=== PATIENT | female | born 1975 | race Caucasian/White ===

== ENCOUNTER 2020-11-01 17:59 | Emergency (ER) | payer SELFPAY ==
[2020-11-01 18:30] VITALS: BP 124/84; PULSE 80; RESP 18; TEMP 36.7; O2SAT 94; BMI 31.2
[2020-11-01 18:35] VITALS: RESP 18; TEMP 36.7; O2SAT 94
--- NOTE | 2020-11-01 19:05 | W.ED.DENTAL ---
HPI - Dental/Oral General: Chief complaint: Dental/Oral Stated complaint: Tooth Ache Time Seen by Provider: 11/01/20 19:00 Source: patient Mode of arrival: ambulatory Limitations: no limitations History of Present Illness: HPI Narrative: Patient is a 45-year-old female who presents to ED today with complaint of left lower dental pain. Patient states she has had a broken tooth for several months but states it recently began bothering her and she has now noticing some swelling patient states she last saw dentist approximately 2 years ago. She is not having any difficulty breathing or trouble swallowing. MD Complaint: tooth pain Teeth map: 1. Onset (ago): day(s) Duration: constant Severity: severe Relieving factors: nothing Exacerbating factors: nothing Context: history of dental caries Associated symptoms: Reports no associated symptoms; Denies ear or mastoid pain, fever(s) or odynophagia Treatment prior to arrival: oral analgesic Review of Systems Const: Denies: fever(s), chills, body aches, fatigue or malaise Eyes: Denies: change in vision, blurry vision or photophobia ENMT: Reports: dental pain; Denies: throat pain, uvular edema, enlarged tonsils, odynophagia, hoarseness, oral sores, bleeding gums, ear or mastoid pain, nasal discharge or nasal congestion Card: Denies: chest pain Resp: Denies: dyspnea GI: Denies: abdominal pain, nausea, vomiting or diarrhea Musc: Denies: neck pain Skin/Breast: Denies: rash Neuro: Denies: headache(s) PFS ED PFSH: Social History (Updated 10/23/20 @ 08:20 by Muna Stroud MA) Smoking and tobacco status: current every day smoker cigarettes Packs smoked per day: 1 Quit status (tobacco): considering quitting Second hand smoke exposure: Yes Smoking risk assessment/counseling performed?: Yes Tobacco counseling given: other Alcohol intake: never Desire information about alcohol rehabilitation?: No Counseling given: No Desire information about substance/drug rehabilitation?: No Counseling given: No Physical Exam Const: COMMON NORMALS: no acute distress, average body habitus, patient oriented x3, no limitations and alert GENERAL APPEARANCE: cooperative ORIENTATION/CONSCIOUSNESS: Yes awake, Yes oriented to person, Yes oriented to place and Yes oriented to time HENMT: COMMON NORMALS: normocephalic and atraumatic HEAD & SCALP: normocephalic and atraumatic FACE & SINUS: normal facial exam TEETH & GINGIVA IMAGES: 1. filling noted; no obvious fracture identified; localized swelling; no abscess THROAT: no uvular edema OTHER: floor of mouth is soft and non-elevated Neck/C-Spine: COMMON NORMALS: full ROM and no lymphadenopathy GENERAL: No anterior neck swelling and No submandibular swelling Lymph: LYMPHATIC: no lymphadenopathy noted Resp: COMMON NORMALS: normal respiratory effort and clear to auscultation bilaterally AUSCULTATION: clear to auscultation bilaterally Cardio: COMMON NORMALS: regular rate and regular rhythm RATE: regular rate RHYTHM: regular rhythm Neuro: JESS COMA SCALE: document GCS findings [place] coma scale eye opening: Spontaneous [place] coma scale verbal response: Orientated [place] coma scale motor response: Obey commands Jess coma scale total score: 15 COMMON NORMALS: patient oriented x3 and CN's II-XII intact bilaterally SENSORIUM/ORIENTATION: Yes alert, Yes oriented to person, Yes oriented to place and Yes oriented to time Skin: COMMON NORMALS: no rashes or lesions noted GENERAL SKIN EXAM: no rashes or lesions noted Course Vital Signs: Vital signs: Vital Signs Temperature 98.0 F 11/01/20 18:30 Pulse Rate 80 11/01/20 18:30 Respiratory Rate 18 11/01/20 18:30 Blood Pressure 124/84 11/01/20 18:30 Pulse Oximetry 94 11/01/20 18:30 MDM - Dental/Oral MDM Narrative: Medical decision making narrative: Given dental resources and stressed importance of dental follow up. Discharge Plan Discharge Patient Disposition: Home Clinical Impression: Toothache, Dental caries Condition: Stable Prescriptions: New ibuprofen 800 mg tablet 800 mg PO Q8H PRN (Reason: pain) Qty: 20 RF: 0 penicillin V potassium 500 mg tablet 500 mg PO Q8H 7 Days Qty: 21 RF: 0 No Action fluoxetine [Prozac] 40 mg capsule 40 mg PO QAM RF: 0 aripiprazole [Abilify] 10 mg tablet 10 mg PO QAM RF: 0 hydroxyzine HCl 25 mg tablet 25 mg PO TID PRNRF: 0 trazodone 100 mg tablet 100 mg PO .QHS PRNRF: 0 diphenhydramine HCl [Benadryl] 25 mg capsule 25 mg PO .QHS PRNRF: 0 Discharge Orders: Discharge ED (Routine); Ordered 11/01/20 Ordered By: Megan Rawls Patient Instructions: Dental Caries (ED), Toothache (ED) Coding Level of Care Code ED Catering Driver for Arielle Katz
[2020-11-01 19:23] VITALS: BP 128/88; PULSE 88; RESP 16; O2SAT 95
== END 2020-11-01 19:25 | disposition home or self-care (01) ==
PROVIDERS: Emergency Provider Physician Assistant
DX: K02.9 Dental caries, unspecified (principal); F17.210 Nicotine dependence, cigarettes, uncomplicated
CPT/HCPCS: 99281

== ENCOUNTER 2023-12-09 15:22 | Inpatient (IN) | payer OTHER, SELFPAY ==
[2023-12-09 15:27] VITALS: BP 127/88; PULSE 86; RESP 17; TEMP 36.7; O2SAT 96; BMI 25.0
--- NOTE | 2023-12-09 16:03 | ED.C_ITS ---
HPI - Psych 2 General: Chief Complaint: Psychiatric Symptoms Stated Complaint: unbalance Time Seen by Provider: 12/09/23 15:34 History of Present Illness: 48-year-old female presents emergency ro om with complaint of what she describes as a chemical imbalance. 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 She picked up a firearm and was contemplating killing herself. He was able to convince her to put the firearm down and then eventually able to convince her to come into the hospital to be seen. 20 years ago she had a hospital admission for suicide ideation/attempt she was hospitalized for a week she is not currently seen at [facility] or by any other psychiatry. She told me that she does not take any medications however initially there is multiple medications on her list. Associated symptoms: Reports depression and suicidal ideation Related Data Home Medications Medication Instructions Recorded Confirmed aripiprazole 10 mg tablet (Abilify) 10 mg PO QAM 04/04/19 03/05/21 diphenhydramine HCl 25 mg capsule 25 mg PO .QHS PRN 04/04/19 03/05/21 (Benadryl) fluoxetine 40 mg capsule (Prozac) 40 mg PO QAM 04/04/19 03/05/21 hydroxyzine HCl 25 mg tablet 25 mg PO TID PRN 04/04/19 03/05/21 trazodone 100 mg tablet 100 mg PO .QHS PRN 04/04/19 03/05/21 Previous Rx's Medication Instructions Recorded ibuprofen 800 mg tablet 800 mg PO Q8H PRN pain #20 tabs 11/01/20 Allergies Allergy/AdvReac Type Severity Reaction Status Date / Time No Known Allergies Allergy Verified 03/05/21 10:33 Review of Systems 2 Const: Denies: fever(s) or chills Card: Denies: chest pain Resp: Denies: dyspnea GI: Denies: abdominal pain : Denies: dysuria, urinary frequency or urinary urgency Musc: Denies: neck pain or back pain Skin/Breast: Denies: rash Psych: Reports: depression and suicidal ideation PFSH ED 2 PFSH: Social History Quit status (tobacco/nicotine): considering quitting Second hand smoke exposure: Yes Alcohol intake: never Substance/Drug Use: never Physical Exam 2 Const: GENERAL APPEARANCE: cooperative ORIENTATION/CONSCIOUSNESS: Yes awake, Yes oriented to person, Yes oriented to place and Yes oriented to time HENMT: COMMON NORMALS: normocephalic, atraumatic and hearing grossly normal bilaterally HEAD & SCALP: normocephalic and atraumatic Resp: COMMON NORMALS: normal respiratory effort, No retractions, No use of accessory muscles and clear to auscultation bilaterally AUSCULTATION: clear to auscultation bilaterally Cardio: COMMON NORMALS: regular rate, regular rhythm and No murmurs present (Cardio) RATE: regular rate RHYTHM: regular rhythm Extremity: COMMON NORMALS: normal to inspection, capillary refill normal, no clubbing, cyanosis or edema, no calf tenderness and no pedal edema Neuro: SENSORIUM/ORIENTATION: Yes oriented to person, Yes oriented to place and Yes oriented to time Skin: COMMON NORMALS: no rashes or lesions noted GENERAL SKIN EXAM: no rashes or lesions noted Course 2 Vital Signs: Vital signs: Vital Signs Temperature 98.0 F 12/09/23 15:27 Pulse Rate 86 12/09/23 15:27 Respiratory Rate 17 12/09/23 15:27 Blood Pressure 127/88 12/09/23 15:27 Pulse Oximetry 96 12/09/23 15:27 Oxygen Delivery Me thod Room Air 12/09/23 15:27 MDM - Psych Medical Decision Making Patient suicidal with attempt using a firearm her was able to talk her out of it on the phone and convince her to come to the emergency room. She is amenable to admission. Discussed Dr. alvaraod will place in s 6-hour hold for suicidal ideation orders written for admission. Interestingly patient told me she is not on any medications or several medications list that she will states she is not currently going to [facility] see about 5 years ago she had an appointment scheduled does not look like she ever followed through with that. Patient also noted to have hyperglycemia. Ketones negative glycosylated hemoglobin ordered discussed Dr. alvarado consultation from the hospitalist service requested Dr. Giordano will see her in MPU. Medical Records I reviewed the patient's medical records. Lab Data I reviewed the patient's lab results. 12/09/23 16:20 12/09/23 16:20 Laboratory Results WBC 11.74 10^3/uL (3.29-11.43) H 12/09/23 16:20 RBC 5.00 10^6/uL (3.85-5.65) 12/09/23 16:20 Hgb 15.50 g/dL (11.27-16.99) 12/09/23 16:20 Hct 43.9 % (36-47) 12/09/23 16:20 MCV 87.8 fl (85-98) 12/09/23 16:20 MCH 31.0 pg (27-33) 12/09/23 16:20 MCHC 35.3 g/dL (30-55) 12/09/23 16:20 RDW 11.9 % (12.1-15.1) L 12/09/23 16:20 Plt Count 253 10^3/cmm (157-399) 12/09/23 16:20 MPV 12.1 fL (7.4-10.4) H 12/09/23 16:20 Neut % (Auto) 67.4 % 12/09/23 16:20 Lymph % (Auto) 25.2 % 12/09/23 16:20 [place] % (Auto) 5.0 % 12/09/23 16:20 Eos % (Auto) 1.6 % 12/09/23 16:20 Baso % (Auto) 0.4 % 12/09/23 16:20 Neut # (Auto) 7.90 10^3/uL (1.8-7.7) H 12/09/23 16:20 Lymph # (Auto) 3.0 10^3/uL (0.8-4.8) 12/09/23 16:20 [place] # (Auto) 0.6 10^3/uL (0.2-0.9) 12/09/23 16:20 Eos # (Auto) 0.2 10^3/uL (0.0-0.8) 12/09/23 16:20 Baso # (Auto) 0.1 10^3/uL (0.0-0.1) 12/09/23 16:20 Nucleated RBC % (auto) 0 % 12/09/23 16:20 Nucleated RBCs # 0.0 /100WBC 12/09/23 16:20 Sodium 138 mmol/L (136-145) 12/09/23 16:20 Potassium 3.7 mmol/L (3.5-5.1) 12/09/23 16:20 Chloride 102 mmol/L (98-107) 12/09/23 16:20 Carbon Dioxide 25 mmol/L (22-29) 12/09/23 16:20 Anion Gap 14.7 (5-19) 12/09/23 16:20 BUN 13 mg/dL (6-20) 12/09/23 16:20 Creatinine 0.5 mg/dL (0.5-0.9) 12/09/23 16:20 GFR Calculation 132.8 mL/min (90-130) H 12/09/23 16:20 Glucose 409 mg/dL (65-115) H 12/09/23 16:20 Calculated Osmolality 303 mOsm/kg (285-295) H 12/09/23 16:20 Calcium 9.2 mg/dL (8.5-10.5) 12/09/23 16:20 Total Bilirubin 0.3 mg/dL (0.15-1.2) 12/09/23 16:20 AST 12 U/L (0-32) 12/09/23 16:20 ALT 13 U/L (0-33) 12/09/23 16:20 Alkaline Phosphatase 114 U/L (35-105) H 12/09/23 16:20 Total Protein 6.8 g/dL (6.6-8.7) 12/09/23 16:20 Albumin 4.3 g/dL (3.5-5.2) 12/09/23 16:20 Globulin 2.5 g/dL (1.3-4.6) 12/09/23 16:20 Salicylates < 0.3 mg/dL (3-10) L 12/09/23 16:20 Acetaminophen < 5.0 ug/mL (10-30) L 12/09/23 16:20 Ethyl Alcohol < 10 mg/dL (0-10) 12/09/23 16:20 Serum Ketones Negative (Negative) 12/09/23 16:20 No radiology studies performed this visit Discharge Plan Discharge Patient Disposition: Admitted As Inpatient Clinical Impression: Suicidal ideation, Depression, Hyperglycemia Condition: Stable Coding Level of Care Code ED Furnace Attendant for Arielle Katz
[2023-12-09 16:31] LABS: Basophils # 0.1 10^3/uL (0.0-0.1); Basophils % 0.4 %; Eosinophils # 0.2 10^3/uL (0.0-0.8); Eosinophils % 1.6 %; Hematocrit 43.9 % (36-47); Lymphocytes % 25.2 %; Mean Corpuscular HGB Conc 35.3 g/dL (30-55); Mean Corpuscular Volume 87.8 fl (85-98); Mean Platelet Volume 12.1 fL (7.4-10.4); Monocytes # 0.6 10^3/uL (0.2-0.9); Neutrophils % 67.4 %; Nucleated Red Blood Cells % 0 %; Platelet Count 253 10^3/cmm (157-399); Red Cell Distribution Width 11.9 % (12.1-15.1); White Blood Count 11.74 10^3/uL (3.29-11.43)
[2023-12-09 16:47] LABS: Alanine Aminotransferase 13 U/L (0-33); Albumin Level 4.3 g/dL (3.5-5.2); Alkaline Phosphatase 114 U/L (35-105); Anion Gap 14.7 (5-19); Aspartate Amino Transferase 12 U/L (0-32); Blood Urea Nitrogen 13 mg/dL (6-20); Calcium 9.2 mg/dL (8.5-10.5); Carbon Dioxide 25 mmol/L (22-29); Chloride 102 mmol/L (98-107); Creatinine Clr Calc Pharmacy 136.3085; Globulin 2.5 g/dL (1.3-4.6); Glomerular Filtration Rate 132.8 mL/min (90-130); Glucose 409 mg/dL (65-115); Osmolality Calculated 303 mOsm/kg (285-295); Potassium 3.7 mmol/L (3.5-5.1); Sodium 138 mmol/L (136-145); Total Bilirubin 0.3 mg/dL (0.15-1.2); Total Protein 6.8 g/dL (6.6-8.7)
[2023-12-09 16:50] LABS: Acetaminophen < 5.0 ug/mL (10-30); Alcohol Level < 10 mg/dL (0-10); Salicylate < 0.3 mg/dL (3-10)
[2023-12-09 17:21] LABS: Ketone (Acetest) Serum Negative (Negative)
[2023-12-09 17:49] LABS: Amphetamines Screen Urine Negative (Negative); Barbiturates Screen Urine Negative (Negative); Benzodiazepines Screen Urine Negative (Negative); Cocaine Screen Urine Negative (Negative); Opiate Screen Urine Negative (Negative); PCP Screen Urine Negative (Negative); THC Screen Urine Negative (Negative)
--- NOTE | 2023-12-09 17:55 | P.CONIM_ITS ---
Providers/Reason For Consult 2 Consulting Physician/Specialty*: Psychiatry Reason for Consult*: Hyperglycemia History of Present Illness History of Present Illness Jacob Sharp is a 48 year old female who presents [facility] for suicidal ideation, hospitalist team was consulted due to patient's elevated blood sugars. Patient does report a family history of type 2 diabetes mellitus, her mother and her daughter have type 2 diabetes mellitus. She denies any polyuria, no polydipsia, no polyphagia. Review of Systems 2 Card: Denies: chest pain Resp: Denies: dyspnea GI: Denies: abdominal pain Medications/Allergies Home Medications Medication Instructions Recorded Confirmed Last Taken Type aripiprazole 10 mg tablet (Abilify) 10 mg PO QAM 04/04/19 03/05/21 Unknown History diphenhydramine HCl 25 mg capsule 25 mg PO .QHS PRN 04/04/19 03/05/21 Unknown History (Benadryl) fluoxetine 40 mg capsule (Prozac) 40 mg PO QAM 04/04/19 03/05/21 Unknown History hydroxyzine HCl 25 mg tablet 25 mg PO TID PRN 04/04/19 03/05/21 Unknown History trazodone 100 mg tablet 100 mg PO .QHS PRN 04/04/19 03/05/21 Unknown History ibuprofen 800 mg tablet 800 mg PO Q8H PRN pain #20 tabs 11/01/20 03/05/21 Unknown Rx Allergies Allergy/AdvReac Type Severity Reaction Status Date / Time No Known Allergies Allergy Verified 03/05/21 10:33 PFSH Acute 2 PFSH: Social History Quit status (tobacco/nicotine): considering quitting Second hand smoke exposure: Yes Alcohol intake: never Substance/Drug Use: never Vitals/I&O/Wt Last Vital Signs Temp 98.0 F 12/09/23 15:27 Pulse 86 12/09/23 15:27 Resp 17 12/09/23 15:27 BP 127/88 12/09/23 15:27 Pulse Ox 96 12/09/23 15:27 O2 Del Method Room Air 12/09/23 15:27 Weight last 48 hrs Weight 68.039 kg Physical Exam 2 Const: COMMON NORMALS: no acute distress and patient oriented x3 Resp: COMMON NORMALS: normal respiratory effort, No retractions, No use of accessory muscles and clear to auscultation bilaterally AUSCULTATION: clear to auscultation bilaterally Cardio: COMMON NORMALS: regular rate, regular rhythm, S1 normal heart sound present and S2 normal heart sound present RATE: regular rate RHYTHM: r egular rhythm HEART SOUNDS: S1 normal heart sound present and S2 normal heart sound present GI: COMMON NORMALS: Normal to inspection, nondistended, normoactive bowel sounds present and non-tender Extremity: COMMON NORMALS: no pedal edema Neuro: COMMON NORMALS: patient oriented x3 Psych: COMMON NORMALS: mental status grossly normal Data 12/09/23 16:20 12/09/23 16:20 A&P Assessment and plan (1) Hyperglycemia: Plan Hyperglycemia -Concerning for type 2 diabetes mellitus -A1c ordered -Lipid panel, TSH -Will start low-dose sliding scale -No evidence of DKA, ketones negative, anion gap 14.7 Consult Attestations 2 Medical Necessity Statement: Patient requires hospitalization for suicidal ideation Diagnoses Hyperglycemia R73.9
--- NOTE | 2023-12-09 18:00 | ECG_ITS ---
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 Measurements Intervals [place] Rate: 74 P: 37 [place]: 176 QRS: 0 QRSD: 68 T: 19 QT: 383 QTc: 427 Interpretive Statements SINUS RHYTHM LOW QRS VOLTAGE IN PRECORDIAL LEADS [QRS DEFLECTION < 1.0 mV IN CHEST LEADS] ANTEROSEPTAL MYOCARDIAL INFARCTION , OF INDETERMINATE AGE [40+ ms Q WAVE IN V1-V4] No previous ECG available for comparison Electronically Signed On 12-09-2023 18:08:35 CDT by Sven Guevara M.D. [id number]
[2023-12-09 18:33] LABS: Cholesterol 188 mg/dL (0-200); HDL Cholesterol 40 mg/dL (60-100); LDL Cholesterol Calculated 119 mg/dL (50-129); LDL HDL Ratio 2.98 RATIO (0.00-3.22); Thyroid Stimulating Hormone 1.14 uIU/mL (0.27-4.20); Triglycerides 143 mg/dL (0-150)
[2023-12-09 18:53] LABS: Glucose Point of Care 468 mg/dL (70-110)
[2023-12-09] MEDS: insulin lispro 100 unit/1 mL SUBCUT (18:56)
[2023-12-09 18:57] VITALS: BP 124/77; PULSE 91; RESP 18; O2SAT 98
[2023-12-09 18:58] VITALS: BP 124/77; PULSE 91; RESP 18; O2SAT 98
[2023-12-09 20:00] VITALS: BP 117/80; PULSE 96; RESP 17; TEMP 37; O2SAT 98
[2023-12-09 20:21] VITALS: BP 117/80; PULSE 96; RESP 17; TEMP 37; O2SAT 98
[2023-12-09 20:23] LABS: Glucose Point of Care 365 mg/dL (70-110)
[2023-12-09 20:51] LABS: HCG Qualitative Urine. Negative (Negative)
[2023-12-09 20:55] LABS: Estmated Average Glucose 263; Hemoglobin A1C 10.8 % (4.0-6.0)
[2023-12-09 21:22] LABS: Glucose Point of Care 211 mg/dL (70-110)
[2023-12-09 21:40] VITALS: BP 129/69; PULSE 93; O2SAT 93
--- NOTE | 2023-12-09 22:05 | PC.NURSE ---
RN gave an additional 14 units of regular insulin at 20:00. Not able to document in may. charge nurse, pharmacy, Doctor and A And P Technician notified. RN gave report to Tanner in NPU on addition dose.
[2023-12-09 23:44] LABS: Glucose Point of Care 118 mg/dL (70-110)
[2023-12-10] VITALS (8 sets, daily range): BP systolic 94–119; BP diastolic 61–82; PULSE 58–93; RESP 16–18; TEMP 36.4–37.1; O2SAT 97–99
[2023-12-10 00:35] LABS: Glucose Point of Care 175 mg/dL (70-110)
[2023-12-10 03:05] LABS: Glucose Point of Care 212 mg/dL (70-110)
--- NOTE | 2023-12-10 03:28 | PC.NURSE ---
Patient had a blood glucose of 468 in the ED. The day shift nurse gave her 14 units of Humilog insulin. Then the manager shift not seeing that she had 14u by day shift gave her an additional 14 units = 28 units total. We did accuchecks @ 20:45=092, 21:29=765, 23:94=765(gave orange juice, peanut butter and a banana), 00:15=978, 03:49=046. supervisor stave cutting notified me of the double dose requesting we monitor her BS q1 hour X2 then q 2-3 hour after that (As above). Patient states that she is NOT diabetic although she has a strong family history of DM. She was seen in the ED by Dr. Rivas. See Orders.
[2023-12-10 05:14] LABS: Glucose Point of Care 241 mg/dL (70-110)
[2023-12-10 07:46] LABS: Glucose Point of Care 261 mg/dL (70-110)
[2023-12-10] MEDS: insulin lispro 100 unit/1 mL SUBCUT ×4 (08:21→22:04)
[2023-12-10 09:46] LABS: Blood Urea Nitrogen 15 mg/dL (6-20); Calcium 9.8 mg/dL (8.5-10.5); Carbon Dioxide 24 mmol/L (22-29); Chloride 102 mmol/L (98-107); Creatinine Clr Calc Pharmacy 113.5904; Glomerular Filtration Rate 107.6 mL/min (90-130); Glucose 340 mg/dL (65-115); Osmolality Calculated 300 mOsm/kg (285-295); Sodium 138 mmol/L (136-145)
[2023-12-10 11:26] LABS: Glucose Point of Care 365 mg/dL (70-110)
[2023-12-10] MEDS: flu vacc pf 24-25 (6 mos+) SYRINGE 45 MCG IM (11:38)
--- NOTE | 2023-12-10 11:43 | PC.NURSE ---
Dr. Giordano asked this RN to have staff educate the patient on how to use her new glucometer and how to inject insulin before she was discharged. This RN printed an educational packet out for the patient and demonstrated how to properly inject her insulin as well as any side effects to watch for. Patient acknowledged her understanding of the information given and had no questions.
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
[2023-12-10 17:12] LABS: Glucose Point of Care 221 mg/dL (70-110)
--- NOTE | 2023-12-10 18:47 | PC.NURSE ---
MEDS TO BEDS TWO BAGS OF MEDICATIONS PLACED IN [facility] AND NOTE LEFT ON CHART REMINDER TO STAFF TO REMOVE MEDICATIONS WHEN DISCHARGED.
[2023-12-10 20:13] LABS: Glucose Point of Care 296 mg/dL (70-110)
[2023-12-10] MEDS: trazodone 50 mg Tablet PO (22:09)
[2023-12-10] MEDS: hyDROXYzine 25 mg Capsule 50 MG PO (22:09)
[2023-12-11] VITALS (9 sets, daily range): BP systolic 78–116; BP diastolic 49–83; PULSE 54–94; RESP 16–18; TEMP 36.4–37.1; O2SAT 96–99
[2023-12-11 07:37] LABS: Glucose Point of Care 230 mg/dL (70-110)
[2023-12-11] MEDS: insulin lispro 100 unit/1 mL SUBCUT ×5 (08:39→20:24)
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
[2023-12-11] MEDS: fluoxetine 20 mg Capsule PO (09:47)
[2023-12-11] MEDS: ARIPiprazole 10 mg Tablet 5 MG PO (09:47)
[2023-12-11 11:08] LABS: Glucose Point of Care 427 mg/dL (70-110)
[2023-12-11 14:57] LABS: Glucose Point of Care 372 mg/dL (70-110)
[2023-12-11] MEDS: insulin glargine 100 units/1 mL 10 UNIT SUBCUT (15:48)
[2023-12-11 17:18] LABS: Glucose Point of Care 264 mg/dL (70-110)
--- NOTE | 2023-12-11 17:22 | PC.NURSE ---
Patient Note When administering insulin this afternoon, patient asked why she had to have so many shots. Explained that her blood sugar was very high and we give insulin to bring it back down. Explained potential problems that can develop if BS is left high and untreated. Explained that patient would probably need to check her sugars at home and more closely monitor her food intake and carb count. Patient nodded but didn't ask more questions. Reinforcement will be needed.
[2023-12-11 18:52] LABS: Glucose Point of Care 351 mg/dL (70-110)
[2023-12-11] MEDS: trazodone 50 mg Tablet PO (20:26)
[2023-12-11 21:12] LABS: Glucose Point of Care 346 mg/dL (70-110)
[2023-12-12] VITALS (8 sets, daily range): BP systolic 94–116; BP diastolic 60–79; PULSE 58–88; RESP 16–18; TEMP 36.4–37.1; O2SAT 96–99
[2023-12-12 07:35] LABS: Glucose Point of Care 218 mg/dL (70-110)
[2023-12-12] MEDS: insulin lispro 100 unit/1 mL SUBCUT ×4 (07:37→20:36)
[2023-12-12] MEDS: ARIPiprazole 10 mg Tablet 5 MG PO (09:01)
[2023-12-12] MEDS: fluoxetine 20 mg Capsule PO (09:01)
[2023-12-12] MEDS: insulin glargine 100 units/1 mL 10 UNIT SUBCUT (10:45)
[2023-12-12 11:10] LABS: Glucose Point of Care 294 mg/dL (70-110)
[2023-12-12 16:27] LABS: Glucose Point of Care 344 mg/dL (70-110)
[2023-12-12] MEDS: acetaminophen 325 mg Tablet 650 MG PO (16:36)
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
[2023-12-12 19:46] LABS: Glucose Point of Care 342 mg/dL (70-110)
[2023-12-12] MEDS: trazodone 50 mg Tablet PO (22:30)
[2023-12-13] MEDS: hyDROXYzine 25 mg Capsule 50 MG PO ×2 (02:50→20:16)
[2023-12-13 06:00] VITALS: BP 103/70; PULSE 77; RESP 18; TEMP 36.6; O2SAT 98
[2023-12-13 08:01] LABS: Glucose Point of Care 174 mg/dL (70-110)
[2023-12-13] MEDS: fluoxetine 20 mg Capsule PO (08:54)
[2023-12-13] MEDS: ARIPiprazole 10 mg Tablet 5 MG PO (08:54)
[2023-12-13] MEDS: insulin glargine 100 units/1 mL 10 UNIT SUBCUT (08:54)
[2023-12-13] MEDS: insulin lispro 100 unit/1 mL SUBCUT ×4 (08:55→19:47)
[2023-12-13 09:21] LABS: Rapid Plasma Reagin Syphilis Nonreactive (Nonreactive)
[2023-12-13 11:48] LABS: HIV 1 & 2 Antibody Non-Reactive (Non-Reactiv); HIV 1 & 2 Antigen Non-Reactive (Non-Reactiv)
[2023-12-13 12:00] VITALS: BP 103/70; PULSE 77; RESP 18; TEMP 36.6
[2023-12-13 12:05] LABS: Glucose Point of Care 277 mg/dL (70-110)
[2023-12-13 14:00] VITALS: BP 145/90; PULSE 82; RESP 18; TEMP 36.8; O2SAT 92
[2023-12-13 17:28] LABS: Glucose Point of Care 190 mg/dL (70-110)
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
[2023-12-13 19:15] LABS: Glucose Point of Care 187 mg/dL (70-110)
[2023-12-13 19:34] VITALS: BP 109/73; PULSE 76; RESP 18; TEMP 36.6; O2SAT 97
[2023-12-13] MEDS: trazodone 50 mg Tablet PO (20:16)
[2023-12-14] MEDS: ibuprofen 600 mg Tablet PO ×2 (03:05→20:28)
[2023-12-14 03:18] LABS: Glucose Point of Care 122 mg/dL (70-110)
[2023-12-14 06:00] VITALS: BP 109/64; PULSE 62; RESP 18; TEMP 36.6; O2SAT 98
[2023-12-14 07:58] LABS: Glucose Point of Care 219 mg/dL (70-110)
[2023-12-14] MEDS: ARIPiprazole 10 mg Tablet 5 MG PO (08:12)
[2023-12-14] MEDS: insulin lispro 100 unit/1 mL SUBCUT ×4 (08:13→20:31)
[2023-12-14] MEDS: fluoxetine 20 mg Capsule PO (08:13)
[2023-12-14] MEDS: insulin glargine 100 units/1 mL 10 UNIT SUBCUT (08:23)
[2023-12-14 11:23] LABS: Glucose Point of Care 242 mg/dL (70-110)
[2023-12-14 12:10] LABS: HSV 2 IGG Type Specific AB <0.90 index
[2023-12-14] MEDS: hyDROXYzine 25 mg Capsule 50 MG PO (13:35)
[2023-12-14 14:00] VITALS: BP 95/59; PULSE 63; RESP 16; TEMP 36.6; O2SAT 97
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
[2023-12-14 16:24] LABS: Chlamydia Trachomatis RNA TMA NOT DETECTED (NOT DETECTED); Neisseria Gonorrhoeae RNA, TMA NOT DETECTED (NOT DETECTED)
[2023-12-14 17:11] LABS: Glucose Point of Care 172 mg/dL (70-110)
[2023-12-14 19:20] VITALS: BP 114/82; PULSE 96; RESP 16; TEMP 36.6; O2SAT 97
[2023-12-14 20:20] LABS: Glucose Point of Care 235 mg/dL (70-110)
[2023-12-14] MEDS: quetiapine 25 mg Tablet 50 MG PO (20:28)
[2023-12-15 06:00] VITALS: BP 119/76; PULSE 69; RESP 18; TEMP 36.5; O2SAT 99
[2023-12-15 07:29] LABS: Glucose Point of Care 167 mg/dL (70-110)
[2023-12-15] MEDS: fluoxetine 20 mg Capsule PO (08:25)
[2023-12-15] MEDS: ARIPiprazole 10 mg Tablet 5 MG PO (08:25)
[2023-12-15] MEDS: insulin glargine 100 units/1 mL 10 UNIT SUBCUT (08:26)
[2023-12-15] MEDS: insulin lispro 100 unit/1 mL SUBCUT ×2 (08:26→11:42)
[2023-12-15] MEDS: hyDROXYzine 25 mg Capsule 50 MG PO (10:55)
[2023-12-15 10:59] LABS: Glucose Point of Care 239 mg/dL (70-110)
[2023-12-15 14:00] VITALS: BP 122/81; PULSE 76; RESP 16; TEMP 36.8; O2SAT 99
--- NOTE | 2023-12-15 14:27 | P.NPUDS_ITS ---
Diagnoses at Discharge Discharge Diagnosis (1) Suicidal ideation: Status: Acute (2) Major depressive disorder, recurrent: Status: Acute (3) Anxiety disorder: Status: Acute (4) PTSD (post-traumatic stress disorder): Status: Acute Reason for Visit Reason for Visit: unbalance Involuntary Hold Information 96 Hour Hold: 96 Hour Involuntary Admission: Yes 96 Hour Hold Ending Date: 12/15/23 96 Hour Hold Ending Time: 16:10 Mental Status Exam MSE Comments: This is an overweight white female with hospital scrubs on with limited grooming and eye contact.? Poor dentition noted. No abnormal movements except for psychomotor retardation.? Mostly cooperative with exam in mild to moderate distress.? Speech was decreased rate and volume. Mood described as better but anxious about my test results, affect mostly congruent. Thought process organized, thought content: Patient denied suicidal or homicidal ideation, there were no delusions reported or noted, she denied auditory or visual hallucinations. Attention and concentration were mostly intact and memory appeared mostly reliable, but none were formally tested.? She is alert and oriented x 3.? Insight and judgment limited, impulse control is limited versus impaired.? Discharge Data Studies Completed and Pending: Pending at discharge Category Date Time Status Glutamic Acid Dec arboxylase AB Rout ine Lab 12/10/23 09:21 Received Insulin Autoantib cathy Routine Lab 12/10/23 09:21 Received Laboratory Results WBC 11.74 10^3/uL (3. 29-11.43) H 12/09/23 16:20 RBC 5.00 10^6/uL (3.8 5-5.65) 12/09/23 16:20 Hgb 15.50 g/dL (11.27 -16.99) 12/09/23 16:20 Hct 43.9 % (36-47) 12/09/23 16:20 MCV 87.8 fl (85-98) 12/09/23 16:20 MCH 31.0 pg (27-33) 12/09/23 16:20 MCHC 35.3 g/dL (30-55) 12/09/23 16:20 RDW 11.9 % (12.1-15.1 ) L 12/09/23 16:20 Plt Count 253 10^3/cmm (157 -399) 12/09/23 16:20 MPV 12.1 fL (7.4-10.4 ) H 12/09/23 16:20 Neut % (Auto) 67.4 % 12/09/23 16:20 Lymph % (Auto) 25.2 % 12/09/23 16:20 [place] % (Auto) 5.0 % 12/09/23 16:20 Eos % (Auto) 1.6 % 12/09/23 16:20 Baso % (Auto) 0.4 % 12/09/23 16:20 Neut # (Auto) 7.90 10^3/uL (1.8 -7.7) H 12/09/23 16:20 Lymph # (Auto) 3.0 10^3/uL (0.8- 4.8) 12/09/23 16:20 [place] # (Auto) 0.6 10^3/uL (0.2- 0.9) 12/09/23 16:20 Eos # (Auto) 0.2 10^3/uL (0.0- 0.8) 12/09/23 16:20 Baso # (Auto) 0.1 10^3/uL (0.0- 0.1) 12/09/23 16:20 Nucleated RBC % (a uto) 0 % 12/09/23 16:20 Nucleated RBCs # 0.0 /100WBC 12/09/23 16:20 Sodium 138 mmol/L (136-1 45) 12/10/23 09:21 Potassium 4.0 mmol/L (3.5-5 .1) 12/10/23 09:21 Chloride 102 mmol/L (98-10 7) 12/10/23 09:21 Carbon Dioxide 24 mmol/L (22-29) 12/10/23 09:21 Anion Gap 16.0 (5-19) 12/10/23 09:21 BUN 15 mg/dL (6-20) 12/10/23 09:21 Creatinine 0.6 mg/dL (0.5-0. 9) 12/10/23 09:21 GFR Calculation 107.6 mL/min (90- 130) 12/10/23 09:21 Glucose 340 mg/dL (65-115 ) H 12/10/23 09:21 POC Glucose 239 mg/dL (70-110 ) H 12/15/23 10:53 Estimat Average Gl ucose 263 12/09/23 18:02 Hemoglobin A1c 10.8 % (4.0-6.0) H 12/09/23 18:02 Calculated Osmolal ity 300 mOsm/kg (285- 295) H 12/10/23 09:21 Calcium 9.8 mg/dL (8.5-10 .5) 12/10/23 09:21 Total Bilirubin 0.3 mg/dL (0.15-1 .2) 12/09/23 16:20 AST 12 U/L (0-32) 12/09/23 16:20 ALT 13 U/L (0-33) 12/09/23 16:20 Alkaline Phosphata se 114 U/L (35-105) H 12/09/23 16:20 Total Protein 6.8 g/dL (6.6-8.7 ) 12/09/23 16:20 Albumin 4.3 g/dL (3.5-5.2 ) 12/09/23 16:20 Globulin 2.5 g/dL (1.3-4.6 ) 12/09/23 16:20 Triglycerides 143 mg/dL (0-150) 12/09/23 18:02 Cholesterol 188 mg/dL (0-200) 12/09/23 18:02 LDL Cholesterol, C alc 119 mg/dL (50-129 ) 12/09/23 18:02 HDL Cholesterol 40 mg/dL (60-100) L 12/09/23 18:02 LDL/HDL Ratio 2.98 RATIO (0.00- 3.22) 12/09/23 18:02 Cholesterol/HDL Ra chidi 4.70 mg/dL (0.0-4 .40) H 12/09/23 18:02 TSH 1.14 uIU/mL (0.27 -4.20) 12/09/23 18:02 HCG, Qual Negative (Negati ve) 12/09/23 17:19 Salicylates < 0.3 mg/dL (3-10 ) L 12/09/23 16:20 Urine Opiates Scre en Negative ng/mL (N egative) 12/09/23 17:19 Acetaminophen < 5.0 ug/mL (10-3 0) L 12/09/23 16:20 Ur Barbiturates Sc reen Negative ng/mL (N egative) 12/09/23 17:19 Ur Phencyclidine S crn Negative ng/mL (N egative) 12/09/23 17:19 Ur Amphetamines Sc reen Negative ng/mL (N egative) 12/09/23 17:19 U Benzodiazepines Scrn Negative ng/mL (N egative) 12/09/23 17:19 Urine Cocaine Scre en Negative ng/mL (N egative) 12/09/23 17:19 U Marijuana (THC) Screen Negative ng/mL (N egative) 12/09/23 17:19 Ethyl Alcohol < 10 mg/dL (0-10) 12/09/23 16:20 Serum Ketones Negative (Negati ve) 12/09/23 16:20 RPR Nonreactive (Non reactive) 12/12/23 08:09 C.trachomatis RNA (TMA) Not detected (NO T DETECTED) 12/13/23 08:25 Chlamydia/GC Comme nt See note 12/13/23 08:25 HSV I IgG Ab 36.70 index H 12/13/23 08:09 HSV II IgG <0.90 index 12/13/23 08:09 HIV 1&2 Ab & HIV 1 Ag Non-reactive (No n-Reactiv) 12/12/23 08:09 HIV 1&2 Antibody Non-reactive (No n-Reactiv) 12/12/23 08:09 N.gonorrhoeae RNA (TMA) Not detected (NO T DETECTED) 12/13/23 08:25 Vitals: Last Vital Signs Temp 98.2 F 12/15/23 14:00 Pulse 76 12/15/23 14:00 Resp 16 12/15/23 14:00 BP 122/81 12/15/23 14:00 Pulse Ox 99 12/15/23 14:00 O2 Del Method Room Air 12/15/23 14:00 Discharge Plan Discharge Patient Disposition: Home Condition: Stable Prescriptions: New metformin 500 mg tablet 500 mg PO BID 30 Days Qty: 60 0RF insulin aspart U-100 [Novolog FlexPen U-100 Insulin] 100 unit/mL (3 mL) insulin pen See Rx Instructions .ROUTE .COMPLEX MDD 50 Qty: 30 0RF Rx Instructions: Inject, subcut, 3 times daily, after meals, based on sliding scale provided (DME) glucometer testing kit See Rx Instructions .Route .MEDSUPPLY Qty: 1 0RF Rx Instructions: Lancets #100 Strips # 100 quetiapine 25 mg Tablet 50 mg PO BEDTIME 30 Days Qty: 60 1RF fluoxetine 20 mg Capsule 20 mg PO DAILY 30 Days Qty: 30 1RF hydroxyzine pamoate 25 mg Capsule 50 mg PO Q6H PRN (Reason: Anxiety) 30 Days Qty: 120 1RF aripiprazole 5 mg tablet 5 mg PO DAILY 30 Days Qty: 30 1RF Discharge Orders: Discharge Order (Routine); Ordered 12/15/23 Ordered By: Rahul Alicia Referrals: [facility] [Outside] Julian Kaplan MD [Physician] - 01/21/24 10:00 am (Establish care. ) Discharge Diet: Diabetic Discharge Activity: Resume usual activity Patient Instructions: Opioid Safety Discharge Attestations NPU Time Spent in Discharge Care*: less than 30 min Specific Discharge Activities: Specific discharge activities: educating patient, discussing with rn case manager/social workers/dc planners, documenting/other paperwork and evaluating patient/reviewing data Coding Level of Care Code Acute Code for [facility] Fwd Diagnoses Suicidal ideation R45.851 Major depressive disorder, recurrent F33.9 Anxiety disorder F41.9 PTSD (post-traumatic stress disorder) F43.10
[2023-12-15 15:04] VITALS: BP 122/81; PULSE 76; RESP 16; TEMP 36.8; O2SAT 99
[2023-12-15 16:09] LABS: Glutamic Acid Decarboxylase AB <5 IU/mL (<5)
[2023-12-16 23:54] LABS: GAD Insulin Autoantibody <0.4 U/mL (<0.4)
== END 2023-12-15 15:19 | disposition home or self-care (01) | DRG 885 ==
LOC: ER 17:27 → NP 18:26
PROVIDERS: Emergency Medicine; Family Medicine; Psychiatry & Neurology Psychiatry; Admitting Provider Psychiatry & Neurology Psychiatry; Emergency Provider Family Medicine; Visit Provider Psychiatry & Neurology Psychiatry
DX: F33.9 Major depressive disorder, recurrent, unspecified (principal); R45.851 Suicidal ideations; R73.9 Hyperglycemia, unspecified; F12.90 Cannabis use, unspecified, uncomplicated; E66.3 Overweight; F41.9 Anxiety disorder, unspecified; F43.10 Post-traumatic stress disorder, unspecified; Z68.24 Body mass index [BMI] 24.0-24.9, adult; Z83.3 Family history of diabetes mellitus
CPT/HCPCS: 36415; 36416; 80048; 80053; 80061; 80306; 80307; 81025; 82009; 82962; 83036; 83519; 84443; 85025; 86337; 86592; 86695; 86696; 87491; 87591; 87806; 90471; 90686; 93005; 96372; 97150; 97165; 99285; J1815

== ENCOUNTER → 2024-01-18 09:43 | Outpatient (BNVA) | payer OTHER, SELFPAY | PROVIDERS: Visit Provider Nurse Practitioner | DX: Z79.899 Other long term (current) drug therapy (principal) | CPT/HCPCS: 80061; 83036 ==

== ENCOUNTER → 2024-06-01 15:48 | Outpatient (BNVA) | payer OTHER, SELFPAY | PROVIDERS: PCP Family Medicine; Visit Provider Family Medicine | DX: E11.9 Type 2 diabetes mellitus without complications (principal) | CPT/HCPCS: 80048; 83036 ==

== ENCOUNTER → 2024-11-23 14:18 | Outpatient (BNVA) | payer OTHER, SELFPAY | PROVIDERS: PCP Family Medicine; Visit Provider Family Medicine | DX: E11.9 Type 2 diabetes mellitus without complications (principal) | CPT/HCPCS: 80053; 83036 ==